=== PATIENT | male | born 1955 | race Hispanic/Latino ===

== ENCOUNTER → 2023-01-08 | Outpatient (CLI) | payer MEDICARE ==
[~2023-01-08] MED LIST: IOHEXOL 350 MG/ML 100ML INFUS..BTL IV ONE; METOPROLOL TARTRATE 1 MG/ML 5ML VIAL IV ONE
== END | disposition home or self-care (01) ==
LOC: RAH 09:58
PROVIDERS: ATTEND Internal Medicine Cardiovascular Disease
DX: I25.10 Atherosclerotic heart disease of native coronary artery without angina pectoris (principal); M47.815 Spondylosis without myelopathy or radiculopathy, thoracolumbar region; R06.02 Shortness of breath
CPT/HCPCS: 75574; J3490; Q9967

== ENCOUNTER → 2025-05-23 | Outpatient (CLI) | payer MEDICARE ==
[~2025-05-23] MED LIST changes: +ASPI-1197 PO; +CARV25TA PO; +CHLO50TA PO; +DAPA10TA PO; +DOXA8TAB81 PO; +FINE10TA PO; +GLIP1TAB5 PO; +INSNOV IVP; +INSU100I26 SQ; -IOHEXOL 350 MG/ML 100ML INFUS..BTL IV ONE; +ISOS60TA77 PO; -METOPROLOL TARTRATE 1 MG/ML 5ML VIAL IV ONE; +ROSU5TAB51 PO; +SEMA1PEN3 SQ; +VALS320T16 PO
[2025-05-23 21:51] VITALS: PULSE 78; RESP 14
[2025-05-23 22:30] VITALS: PULSE 74; RESP 16
[2025-05-23 23:00] VITALS: PULSE 74; RESP 14
[2025-05-23 23:30] VITALS: PULSE 70; RESP 14
[2025-05-24] VITALS (7 sets, daily range): PULSE 64–88; RESP 14–20
== END | disposition home or self-care (01) ==
LOC: SLP 19:28
PROVIDERS: ATTEND Family Medicine
DX: G47.33 Obstructive sleep apnea (adult) (pediatric) (principal); R06.83 Snoring; I10 Essential (primary) hypertension; E11.9 Type 2 diabetes mellitus without complications; E66.9 Obesity, unspecified
CPT/HCPCS: 95810

== ENCOUNTER → 2025-07-02 | Outpatient (CLI) | payer MEDICARE ==
[2025-07-02 22:52] VITALS: PULSE 74; RESP 18
[2025-07-02 23:30] VITALS: PULSE 74; RESP 14
[2025-07-03] VITALS (11 sets, daily range): PULSE 70–74; RESP 12–18
== END | disposition home or self-care (01) ==
LOC: SLP 20:34
PROVIDERS: ATTEND Family Medicine
DX: G47.33 Obstructive sleep apnea (adult) (pediatric) (principal)
CPT/HCPCS: 95811